=== PATIENT | male | born 1995 | race Two or more races ===

== ENCOUNTER 2023-03-15 12:33 | Emergency (ER) | payer OTHER, SELFPAY ==
[2023-03-15 13:32] VITALS: BP 129/73; PULSE 97; RESP 17; TEMP 38.5; O2SAT 100; BMI 26.5
--- NOTE | 2023-03-15 13:38 | US_ITS ---
[address] [address] Patient Name: ABELARDO WINCHESTER MRN: [id number] date: 1995 Sex: M Assigned Patient Location: ED.MAIN Current Patient Location: ED.MAIN Accession/Order Number: [id number] Exam Date: 03/15/2023 14:00 Report Date: 03/15/2023 14:29 At the request of: TEMO GALINDO Procedure: US venous doppler LE RT EXAMINATION: US venous doppler LE RT HISTORY: DVT COMPARISON: No relevant comparison available. TECHNIQUE: Grayscale, color and Doppler FINDINGS: Region: Right leg Thrombus: None Flow: Normal Compressibility: Normal Augmentation: Normal US/US venous doppler LE RT IMPRESSION: No deep or superficial vein thrombus identified in the right leg *Exam performed in accordance with [facility] practice guidelines- Peripheral venous ultrasound, October 03, 2009. Electronically authenticated by: MARIA D CASSIDY Date: 03/15/2023 14:29
--- NOTE | 2023-03-15 13:40 | ED_ITS ---
Documented by User: VINCENZO Naidu 03/15/23 17:49 HPI - General Adult General Chief complaint: Fever Stated complaint: LOWER EXTREMITY PAIN AND FEVER Time Seen by Provider: 03/15/23 13:37 Source: patient Mode of arrival: walk-in Limitations: no limitations History of Present Illness HPI narrative: patient is a 28-year-old male who presents to the emergency department for the evaluation of fever, right thigh pain, headache. Patient states for the last four days he has had temperatures as high as 103.0 Fahrenheit as well as a headache, body aches and decreased appetite. He states he has noticed swelling and tightness to the right thigh. There has not been any significant redness or drainage. He denies any difficulty breathing or chest pain. No vomiting or diarrhea. 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 No calf pain. He denies any significant medical history and does not take any prescribed medications daily. He took Tylenol earlier this morning for his fever. Related Data Previous Rx's Medication Instructions Recorded cephalexin 500 mg capsule 500 mg PO Q8H 10 days #30 caps 03/15/23 ketorolac 10 mg tablet 10 mg PO TID PRN pain #10 tabs 03/15/23 oxycodone-acetaminophen 5 mg-325 1 tab PO Q6H PRN pain #15 tabs 03/15/23 mg tablet (Percocet) sulfamethoxazole 800 1 tab PO BID 10 days #20 tabs 03/15/23 mg-trimethoprim 160 mg tablet (Bactrim DS) Allergies Allergy/AdvReac Type Severity Reaction Status Date / Time No Known Drug Allergies Allergy Verified 03/15/23 13:32 Review of Systems ROS Constitutional Reports: fever; Denies: chills Ears, nose, mouth, and throat Denies: throat pain Cardiovascular Denies: chest pain Respiratory Denies: shortness of breath or cough Gastrointestinal Denies: nausea or vomiting Musculoskeletal Reports: extremity pain and extremity swelling; Denies: back pain or neck pain Integumentary/Breast Denies: rash Neurological Reports: headache Hematologic/Lymphatic Denies: easy bruising Exam Narrative Exam Narrative: Gen.: Awake, alert, in no distress Head: Normocephalic, atraumatic ENT: bilateral tympanic membranes clear, moist mucous membranes with normal pharynx, clear speech Respiratory: No respiratory distress, lungs clear bilaterally Cardio: Regular rate and rhythm Extremities: Moves extremities equally, right thigh with no significant erythema, posterior right thigh with swelling and firmness, bilateral calves are soft and nonntender. Right thigh appears larger than the left thigh Psych: Normal mood and affect Neuro: No focal neuro deficit Skin: Warm, dry, intact Constitutional Vital Signs, click to edit/add: Last Vital Signs Temp 101.3 F H 03/15/23 13:32 Pulse 97 H 03/15/23 13:32 Resp 17 03/15/23 13:32 BP 129/73 03/15/23 13:32 Pulse Ox 100 03/15/23 13:32 O2 Del Method Room Air 03/15/23 13:32 Course Vital Signs Vital signs: Vital Signs Temperature 101.3 F H 03/15/23 13:32 Pulse Rate 97 H 03/15/23 13:32 Respiratory Rate 17 03/15/23 13:32 Blood Pressure 129/73 03/15/23 13:32 Pulse Oximetry 100 03/15/23 13:32 Oxygen Delivery Method Room Air 03/15/23 13:32 Temperature 101.3 F H 03/15/23 13:32 Pulse Rate 97 H 03/15/23 13:32 Respiratory Rate 17 03/15/23 13:32 Blood Pressure 129/73 03/15/23 13:32 Pulse Oximetry 100 03/15/23 13:32 Oxygen Delivery Method Room Air 03/15/23 13:32 Medical Decision Making [facility] Narrative Medical decision making narrative: patient had a full sepsis workup including obtaining strep, mono and Covid screens which were all negative. He had blood cultures obtained, lab studies show bandemia but no significant leukocytosis. He has minimal renal insufficiency and elevated LFTs. He has no complaints of abdominal pain, no vomiting or diarrhea. He had improvement of fever and headache with IV fluids, Toradol. He was also given IV Rocephin as his exam of the right lower extremity is concerning for a possible cellulitis. Chest x-ray shows no evidence of acute cardiopulmonary changes, CT of the femur with no evidence of significant abscess, there is soft tissue edema and we will treat for cellulitis of the right femur with Bactrim, Keflex. He is also given a prescription of pain medication, anti-inflammatories for home. Elevate the leg, follow-up with PCP closely and return to the Emergency Room if symptoms change or worsen. Patient was reevaluated by attending physician prior to discharge, patient and his at bedside are in agreement with treatment plan. Medical Records Medical records reviewed: Yes I reviewed the patient's medical records Lab Data Lab results reviewed: Yes I reviewed the patient's lab results Labs: Lab Results 03/15/23 03/15/23 03/15/23 Range/Units 13:50 14:30 16:50 WBC 11.1 H (4.0-11.0) 10^3/uL RBC 4.43 L (4.70-6.10) 10^6/uL Hgb 14.4 (14.0-18.0) g/dL Hct 42.2 (42.0-54.0) % MCV 95.3 H (80.0-94.0) fL MCH 32.5 (25.9-34.0) pg MCHC 34.1 (29.9-35.2) g/dL RDW 11.7 (11.0-15.0) % Plt Count 124 L (150-450) 10^3/uL MPV 10.2 (9.5-13.5) fL Seg Neuts % (Manual) 80.0 Band Neutrophils % 5.0 (0-5) % Lymphocytes % (Manual) 5.0 L (20.5-60.0) % Monocytes % (Manual) 10.0 (1.7-12.0) % Eosinophils % (Manual) 0.0 L (0.9-7.0) % Basophils % (Manual) 0.0 L (0.2-2.0) % Neutrophils # (Manual) 8.88 H (1.4-6.5) 10^3/uL Band Neutrophils # 0.6 H (0.0-0.3) 10^3/uL Lymphocytes # (Manual) 0.55 L (1.20-3.80) 10^3/uL Monocytes # (Manual) 1.11 H (0.30-0.80) 10^3/uL Eosinophils # (Manual) 0.00 (0.00-0.70) 10^3/uL Basophils # (Manual) 0.00 (0.00-0.10) 10^3/uL PT 10.7 (9.0-11.6) sec INR 1.01 APTT 32.2 (22.3-36.2) sec VBG pH 7.403 (7.330-7.430) VBG pCO2 44.8 (40.0-52.0) mmHg Sodium 135 L (136-145) mmol/L Potassium 3.5 (3.5-5.1) mmol/L Chloride 98 (98-107) mmol/L Carbon Dioxide 28.4 (21.0-32.0) mmol/L Anion Gap 12.1 BUN 10.0 (7.0-18.0) mg/dL Creatinine 1.49 H (0.70-1.30) mg/dL Est GFR ( Amer) >60 (>=60) Est GFR (Non-Af Amer) 57 L (>=60) BUN/Creatinine Ratio 6.7 Glucose 117 H (74-106) mg/dL Lactate 1.5 (0.4-2.0) mmol/L Calcium 9.1 (8.5-10.1) mg/dL Total Bilirubin 1.5 H (0.2-1.0) mg/dL AST 159 H (15-37) U/L ALT 153 H (16-63) U/L Alkaline Phosphatase 96 (46-116) U/L Total Protein 7.9 (6.4-8.2) g/dL Albumin 3.7 (3.4-5.0) g/dL Globulin 4.2 g/dL Albumin/Globulin Ratio 0.9 Urine Color Yellow (YELLOW) Urine Clarity Clear (CLEAR) Urine pH 6.0 (5.0-9.0) Ur Specific Gibbs 1.010 (1.005-1.025) Urine Protein 30 A (NEG/TRACE) mg/dL Urine Glucose (UA) Negative (NEGATIVE) mg/dL Urine Ketones Negative (NEGATIVE) mg/dL Urine Occult Blood Small A (NEGATIVE) Urine Nitrite Negative (NEGATIVE) Urine Bilirubin Negative (NEGATIVE) Urine Urobilinogen 1.0 (0.2-1.0) EU/dL Ur Leukocyte Esterase Negative (NEGATIVE) Urine RBC None seen (0-2) #/HPF Urine WBC 0-2 A (NONE SEEN) #/HPF Ur Squamous Epith Cells None seen (NONE/RARE) #/LPF Urine Crystals None seen (None Seen) #/HPF Urine Bacteria None seen (NONE SEEN) #/HPF Urine Casts None seen (NONE SEEN) #/LPF Urine Mucus None seen (NONE SEEN) Ur Culture Indicated? No SARS-CoV-2 (PCR) Negative (NEGATIVE) Monoscreen Negative (NEGATIVE) Streptococcus Screen Negative Imaging Data Chest x-ray: Attestation: I have reviewed the pertinent imaging results. CT right femur: Attestation: I have reviewed the pertinent imaging results. Discharge Plan Discharge Chief Complaint: Fever Clinical Impression: Fever, Cellulitis Patient Disposition: Home, Self-Care Time of Disposition Decision: 17:45 Condition: Good Mode of Transportation: Private Vehicle Prescriptions / Home Meds: New sulfamethoxazole-trimethoprim [Bactrim DS] 800-160 mg tablet 1 tab PO BID 10 Days Qty: 20 0RF ketorolac 10 mg tablet 10 mg PO TID PRN (Reason: pain) Qty: 10 0RF oxycodone-acetaminophen [Percocet] 5-325 mg tablet 1 tab PO Q6H PRN (Reason: pain) Qty: 15 0RF Rx Instructions: DX: L03.90 cephalexin 500 mg capsule 500 mg PO Q8H 10 Days Qty: 30 0RF Instructions: Cellulitis (ED), Fever in Adults (ED) Stand Alone Forms: Portal Instructions Referrals: Physician,Non-Staff, [Primary Care Provider] - 1 week Discharge Date/Time: 03/15/23 18:30 Documented by User: Nhi Moran MD 03/16/23 08:00 HPI - General Adult General Chief complaint: Fever Stated complaint: LOWER EXTREMITY PAIN AND FEVER Time Seen by Provider: 03/15/23 13:37 Related Data Previous Rx's Medication Instructions Recorded cephalexin 500 mg capsule 500 mg PO Q8H 10 days #30 caps 03/15/23 ketorolac 10 mg tablet 10 mg PO TID PRN pain #10 tabs 03/15/23 oxycodone-acetaminophen 5 mg-325 1 tab PO Q6H PRN pain #15 tabs 03/15/23 mg tablet (Percocet) sulfamethoxazole 800 1 tab PO BID 10 days #20 tabs 03/15/23 mg-trimethoprim 160 mg tablet (Bactrim DS) Allergies Allergy/AdvReac Type Severity Reaction Status Date / Time No Known Drug Allergies Allergy Verified 03/15/23 13:32 Exam Constitutional Vital Signs, click to edit/add: Last Vital Signs Temp 101.3 F H 03/15/23 13:32 Pulse 97 H 03/15/23 13:32 Resp 17 03/15/23 13:32 BP 129/73 03/15/23 13:32 Pulse Ox 100 03/15/23 13:32 O2 Del Method Room Air 03/15/23 13:32 Course Vital Signs Vital signs: Vital Signs Temperature 101.3 F H 03/15/23 13:32 Pulse Rate 97 H 03/15/23 13:32 Respiratory Rate 17 03/15/23 13:32 Blood Pressure 129/73 03/15/23 13:32 Pulse Oximetry 100 03/15/23 13:32 Oxygen Delivery Method Room Air 03/15/23 13:32 Temperature 101.3 F H 03/15/23 13:32 Pulse Rate 97 H 03/15/23 13:32 Respiratory Rate 17 03/15/23 13:32 Blood Pressure 129/73 03/15/23 13:32 Pulse Oximetry 100 03/15/23 13:32 Oxygen Delivery Method Room Air 03/15/23 13:32 Medical Decision Making [facility] Narrative Medical decision making narrative: patient had a full sepsis workup including obtaining strep, mono and Covid screens which were all negative. He had blood cultures obtained, lab studies show bandemia but no significant leukocytosis. He has minimal renal insufficiency and elevated LFTs. He has no complaints of abdominal pain, no vomiting or diarrhea. He had improvement of fever and headache with IV fluids, Toradol. He was also given IV Rocephin as his exam of the right lower extremity is concerning for a possible cellulitis. Chest x-ray shows no evidence of acute cardiopulmonary changes, CT of the femur with no evidence of significant abscess, there is soft tissue edema and we will treat for cellulitis of the right femur with Bactrim, Keflex. He is also given a prescription of pain medication, anti-inflammatories for home. Elevate the leg, follow-up with PCP closely and return to the Emergency Room if symptoms change or worsen. Patient was reevaluated by attending physician prior to discharge, patient and his at bedside are in agreement with treatment plan. Attending physician attestation Patient with pain to the right medial thigh. Doppler is negative for deep vein thrombosis. There is small amount of erythema with some streaking. Patient points to this foot is point tenderness which started at same time as the fever. I have seen and evaluated this patient. I have reviewed the mid-level provider?s documentation medical decision making and treatment plan. I agree with the mid- level provider?s assessment, and plan. Lab Data Labs: Lab Results 03/15/23 03/15/23 03/15/23 Range/Units 13:50 14:30 16:50 WBC 11.1 H (4.0-11.0) 10^3/uL RBC 4.43 L (4.70-6.10) 10^6/uL Hgb 14.4 (14.0-18.0) g/dL Hct 42.2 (42.0-54.0) % MCV 95.3 H (80.0-94.0) fL MCH 32.5 (25.9-34.0) pg MCHC 34.1 (29.9-35.2) g/dL RDW 11.7 (11.0-15.0) % Plt Count 124 L (150-450) 10^3/uL MPV 10.2 (9.5-13.5) fL Seg Neuts % (Manual) 80.0 Band Neutrophils % 5.0 (0-5) % Lymphocytes % (Manual) 5.0 L (20.5-60.0) % Monocytes % (Manual) 10.0 (1.7-12.0) % Eosinophils % (Manual) 0.0 L (0.9-7.0) % Basophils % (Manual) 0.0 L (0.2-2.0) % Neutrophils # (Manual) 8.88 H (1.4-6.5) 10^3/uL Band Neutrophils # 0.6 H (0.0-0.3) 10^3/uL Lymphocytes # (Manual) 0.55 L (1.20-3.80) 10^3/uL Monocytes # (Manual) 1.11 H (0.30-0.80) 10^3/uL Eosinophils # (Manual) 0.00 (0.00-0.70) 10^3/uL Basophils # (Manual) 0.00 (0.00-0.10) 10^3/uL PT 10.7 (9.0-11.6) sec INR 1.01 APTT 32.2 (22.3-36.2) sec VBG pH 7.403 (7.330-7.430) VBG pCO2 44.8 (40.0-52.0) mmHg Sodium 135 L (136-145) mmol/L Potassium 3.5 (3.5-5.1) mmol/L Chloride 98 (98-107) mmol/L Carbon Dioxide 28.4 (21.0-32.0) mmol/L Anion Gap 12.1 BUN 10.0 (7.0-18.0) mg/dL Creatinine 1.49 H (0.70-1.30) mg/dL Est GFR ( Amer) >60 (>=60) Est GFR (Non-Af Amer) 57 L (>=60) BUN/Creatinine Ratio 6.7 Glucose 117 H (74-106) mg/dL Lactate 1.5 (0.4-2.0) mmol/L Calcium 9.1 (8.5-10.1) mg/dL Total Bilirubin 1.5 H (0.2-1.0) mg/dL AST 159 H (15-37) U/L ALT 153 H (16-63) U/L Alkaline Phosphatase 96 (46-116) U/L Total Protein 7.9 (6.4-8.2) g/dL Albumin 3.7 (3.4-5.0) g/dL Globulin 4.2 g/dL Albumin/Globulin Ratio 0.9 Urine Color Yellow (YELLOW) Urine Clarity Clear (CLEAR) Urine pH 6.0 (5.0-9.0) Ur Specific Gibbs 1.010 (1.005-1.025) Urine Protein 30 A (NEG/TRACE) mg/dL Urine Glucose (UA) Negative (NEGATIVE) mg/dL Urine Ketones Negative (NEGATIVE) mg/dL Urine Occult Blood Small A (NEGATIVE) Urine Nitrite Negative (NEGATIVE) Urine Bilirubin Negative (NEGATIVE) Urine Urobilinogen 1.0 (0.2-1.0) EU/dL Ur Leukocyte Esterase Negative (NEGATIVE) Urine RBC None seen (0-2) #/HPF Urine WBC 0-2 A (NONE SEEN) #/HPF Ur Squamous Epith Cells None seen (NONE/RARE) #/LPF Urine Crystals None seen (None Seen) #/HPF Urine Bacteria None seen (NONE SEEN) #/HPF Urine Casts None seen (NONE SEEN) #/LPF Urine Mucus None seen (NONE SEEN) Ur Culture Indicated? No SARS-CoV-2 (PCR) Negative (NEGATIVE) Monoscreen Negative (NEGATIVE) Streptococcus Screen Negative Discharge Plan Discharge Chief Complaint: Fever Clinical Impression: Fever, Cellulitis Patient Disposition: Home, Self-Care Time of Disposition Decision: 17:45 Condition: Good Mode of Transportation: Private Vehicle Prescriptions / Home Meds: New sulfamethoxazole-trimethoprim [Bactrim DS] 800-160 mg tablet 1 tab PO BID 10 Days Qty: 20 0RF ketorolac 10 mg tablet 10 mg PO TID PRN (Reason: pain) Qty: 10 0RF oxycodone-acetaminophen [Percocet] 5-325 mg tablet 1 tab PO Q6H PRN (Reason: pain) Qty: 15 0RF Rx Instructions: DX: L03.90 cephalexin 500 mg capsule 500 mg PO Q8H 10 Days Qty: 30 0RF Instructions: Cellulitis (ED), Fever in Adults (ED) Stand Alone Forms: Portal Instructions Referrals: Physician,Non-Staff, MD [Primary Care Provider] - 1 week Discharge Date/Time: 03/15/23 18:30
[2023-03-15 14:06] LABS: PCO2 VBG 44.8 mmHg (40.0-52.0); pH VBG 7.403 (7.330-7.430)
[2023-03-15 14:10] LABS: Hematocrit 42.2 % (42.0-54.0); Hemoglobin 14.4 g/dL (14.0-18.0); Mean Corpuscular HGB Conc 34.1 g/dL (29.9-35.2); Mean Corpuscular Hemoglobin 32.5 pg (25.9-34.0); Mean Corpuscular Volume 95.3 fL (80.0-94.0); Mean Platelet Volume 10.2 fL (9.5-13.5); Platelet Count 124 10^3/uL (150-450); Red Blood Count 4.43 10^6/uL (4.70-6.10); Red Cell Distribution Width 11.7 % (11.0-15.0); White Blood Count 11.1 10^3/uL (4.0-11.0)
[2023-03-15 14:24] LABS: INR 1.01; Partial Thromboplastin Time 32.2 sec (22.3-36.2); Prothrombin Time 10.7 sec (9.0-11.6)
[2023-03-15 14:26] LABS: Segmented Neut Absolute Manual 8.88 10^3/uL (1.4-6.5)
[2023-03-15] MEDS: 0.9 % SODIUM CHLORIDE 1,000 ML 999 ML IV (14:26)
[2023-03-15] MEDS: KETOROLAC TROMETHAMINE 30 MG/ML VIAL IVP (14:26)
[2023-03-15 14:27] LABS: Band Neutrophils Absolute 0.6 10^3/uL (0.0-0.3); Lymphocytes Absolute Manual 0.55 10^3/uL (1.20-3.80); Monocytes Absolute Manual 1.11 10^3/uL (0.30-0.80)
[2023-03-15 14:37] LABS: Alanine Aminotransferase 153 U/L (16-63); Albumin Globulin Ratio 0.9; Albumin Level 3.7 g/dL (3.4-5.0); Alkaline Phosphatase 96 U/L (46-116); Anion Gap 12.1; Aspartate Amino Transferase 159 U/L (15-37); BUN Creatinine Ratio 6.7; Bilirubin Total 1.5 mg/dL (0.2-1.0); Calcium 9.1 mg/dL (8.5-10.1); Carbon Dioxide 28.4 mmol/L (21.0-32.0); Chloride 98 mmol/L (98-107); Estimated GFR (African America >60 (>=60); Estimated GFR (Non-African Ame 57 (>=60); Globulin 4.2 g/dL; Glucose 117 mg/dL (74-106); Potassium 3.5 mmol/L (3.5-5.1); Sodium 135 mmol/L (136-145); Total Protein 7.9 g/dL (6.4-8.2)
[2023-03-15 14:39] LABS: Lactate/Lactic Acid 1.5 mmol/L (0.4-2.0)
[2023-03-15] MEDS: 0.9 % SODIUM CHLORIDE 1,000 ML 1000 ML IV (15:18)
[2023-03-15 15:41] LABS: SARS-CoV-2 Ag NEGATIVE (NEGATIVE)
[2023-03-15 15:50] LABS: Mono Screen NEGATIVE (NEGATIVE)
--- NOTE | 2023-03-15 16:18 | CT_ITS ---
The [address] [address] Patient Name: ABELARDO WINCHESTER MRN: [id number] date: 1995 Sex: M Assigned Patient Location: ER Current Patient Location: ED.MAIN Accession/Order Number: [id number] Exam Date: 03/15/2023 16:25 Report Date: 03/15/2023 17:24 At the request of: TEMO GALINDO Procedure: CT femur RT wo con EXAM: CT femur RT wo con HISTORY: Right upper thigh pain COMPARISON: None. TECHNIQUE: Axial CT imaging is performed noncontrast. Sagittal and coronal reformatted/reconstructed sequences were additionally performed. FINDINGS: This study is limited secondary to the lack of intravenous contrast. Subfascial edema of the distal posterior compartment of the thigh. 20 x 16.7 x 13.9 mm soft tissue foci within the popliteal fossa (coronal 66, sagittal 49 and axial 247). This may represent a lymph node. Questionable smaller adjacent lymph nodes. The superficial subcutaneous soft tissue edema beginning within the mid thigh and extending distally into the visualized lower leg. No visualized discrete loculated collection. No fracture, dislocation, subluxation or osseous lesion. The right sacroiliac joint, pubic symphysis, right hip joint and right knee joint are unremarkable. No joint effusions. The visualized deep pelvis exhibits no discrete abnormality. CT/CT femur RT wo con IMPRESSION: Poorly evaluated edema of the distal posterior compartment of the thigh with surrounding superficial soft tissue edema. Electronically authenticated by: MARIA D SHAH Date: 03/15/2023 17:24
--- NOTE | 2023-03-15 16:18 | XR_ITS ---
The [address] [address] Patient Name: ABELARDO WINCHESTER MRN: [id number] date: 1995 Sex: M Assigned Patient Location: ER Current Patient Location: ER Accession/Order Number: [id number] Exam Date: 03/15/2023 16:29 Report Date: 03/15/2023 16:46 At the request of: TEMO GALINDO Procedure: XR chest 1V EXAM: XR chest 1V at 1601 hours HISTORY: fever COMPARISON: None. TECHNIQUE: AP upright portable chest x-ray FINDINGS: The heart is not enlarged and the vasculature is not distended. No acute infiltrate, effusion or pneumothorax is identified. The osseous structures are grossly intact. XR/XR chest 1V IMPRESSION: No acute infiltrate or evidence of cardiac decompensation. Direct comparison with a previous study would be helpful in determining the chronicity is findings. Electronically authenticated by: NINA NIEVES Date: 03/15/2023 16:46
[2023-03-15] MEDS: CEFTRIAXONE 1,000 MG in 0.9 % SODIUM CHLORIDE 50 ML 100 MG IV (16:52)
[2023-03-15] MEDS: MORPHINE SULFATE 4 MG/ML VIAL IV (17:03)
[2023-03-15] MEDS: ONDANSETRON PF 4 MG/2 ML VIAL IV (17:03)
[2023-03-15 17:08] LABS: Internal Control Within Normal Limits; Strep A Antigen Screen Negative
[2023-03-15 17:12] LABS: Bilirubin Urine NEGATIVE (NEGATIVE); Blood Urine SMALL (NEGATIVE); Clarity Urine CLEAR (CLEAR); Color Urine YELLOW (YELLOW); Glucose Urine UA NEGATIVE (NEGATIVE); Ketones Urine NEGATIVE (NEGATIVE); Leukocyte Esterase Urine NEGATIVE (NEGATIVE); Nitrite Urine NEGATIVE (NEGATIVE); Protein Urine 30 mg/dL (NEG/TRACE); Urine Microscopic Indicated YES
[2023-03-15 17:17] LABS: Bacteria Urine NONE SEEN #/HPF (NONE SEEN); Cast Seen? NONE SEEN #/LPF (NONE SEEN); Crystals Seen? None Seen #/HPF (None Seen); Mucus Urine NONE SEEN (NONE SEEN); RBC Urine NONE SEEN #/HPF (0-2); Squamous Epithelial Cell Urine NONE SEEN #/LPF (NONE/RARE); Urine Culture Indicated NO; WBC Urine 0-2 #/HPF (NONE SEEN)
[2023-03-16 16:09] LABS: SARS-CoV-2 NAA NOT DETECTED (NOT DETECTE)
== END 2023-03-15 18:30 | disposition home or self-care (01) ==
PROVIDERS: Physician Assistant; Emergency Provider Emergency Medicine
DX: R50.9 Fever, unspecified (principal); L03.115 Cellulitis of right lower limb; Z20.822 Contact with and (suspected) exposure to COVID-19; N28.9 Disorder of kidney and ureter, unspecified; R79.89 Other specified abnormal findings of blood chemistry
CPT/HCPCS: 36415; 71045; 73700; 80053; 81001; 82800; 83605; 85027; 85610; 85730; 86308; 87040; 87070; 87635; 87811; 87880; 93971; 96365; 96375; 99285; U0003

== ENCOUNTER 2023-03-24 13:35 | Outpatient (OUT) | payer OTHER, SELFPAY ==
[2023-03-24 13:58] LABS: Basophils Absolute Auto 0.1 10^3/uL (0.0-0.1); Basophils Percent Auto 1.2 % (0.2-2.0); Eosinophils Absolute Auto 0.2 10^3/uL (0.0-0.7); Eosinophils Percent Auto 2.6 % (0.9-7.0); Hematocrit 37.3 % (42.0-54.0); Hemoglobin 13.1 g/dL (14.0-18.0); Immature Granulocytes Pct Auto 5.9 % (0.0-0.5); Lymphocytes Absolute Auto 2.1 10^3/uL (1.2-3.8); Lymphocytes Percent Auto 30.8 % (20.5-60.0); Mean Corpuscular HGB Conc 35.1 g/dL (29.9-35.2); Mean Corpuscular Hemoglobin 33.2 pg (25.9-34.0); Mean Corpuscular Volume 94.7 fL (80.0-94.0); Mean Platelet Volume 9.4 fL (9.5-13.5); Monocytes Absolute Auto 0.5 10^3/uL (0.3-0.8); Monocytes Percent Auto 7.6 % (1.7-12.0); Neutrophils Absolute Auto 3.5 10^3/uL (1.4-6.5); Neutrophils Percent Auto 51.9 % (43.0-75.0); Platelet Count 435 10^3/uL (150-450); Red Blood Count 3.94 10^6/uL (4.70-6.10); Red Cell Distribution Width 11.8 % (11.0-15.0); White Blood Count 6.8 10^3/uL (4.0-11.0)
[2023-03-24 14:05] LABS: Alanine Aminotransferase 184 U/L (16-63); Albumin Globulin Ratio 0.8; Albumin Level 3.6 g/dL (3.4-5.0); Alkaline Phosphatase 123 U/L (46-116); Anion Gap 14.4; Aspartate Amino Transferase 76 U/L (15-37); BUN Creatinine Ratio 24.3; Bilirubin Total 0.2 mg/dL (0.2-1.0); Calcium 9.3 mg/dL (8.5-10.1); Carbon Dioxide 25.9 mmol/L (21.0-32.0); Chloride 96 mmol/L (98-107); Estimated GFR (African America >60 (>=60); Estimated GFR (Non-African Ame 55 (>=60); Globulin 4.5 g/dL; Glucose 88 mg/dL (74-106); Potassium 4.3 mmol/L (3.5-5.1); Sodium 132 mmol/L (136-145); Total Protein 8.1 g/dL (6.4-8.2)
== END 2023-03-24 13:36 | disposition home or self-care (01) ==
LOC: LAB 13:35
DX: R74.8 Abnormal levels of other serum enzymes (principal); D72.828 Other elevated white blood cell count; Z09 Encounter for follow-up examination after completed treatment for conditions other than malignant neoplasm
CPT/HCPCS: 36415; 80053; 85025